=== PATIENT | female | born 1985 | race Caucasian/White ===

== ENCOUNTER 2020-08-17 09:56 | Outpatient (REF) | payer SELFPAY ==
--- NOTE | 2020-08-17 11:30 | PAPFT_PTH ---
PATIENT: Bailey Lloyd LOC: [facility] U#:[id number] AGE/SX: 34/F ROOM: RE08/17/[address]: Ananya Thomason APRN : 1985 BED: DIS: 08/17/2020 SPEC #: [id number] RECD: 08/18/20 10:19 STATUS: SERENA REDebra #: [id number] PRECIOUS: 08/17/20 11:[address]: Ananya Thomason DEPT: [facility] Cytology RECD BY: Aliza Martinez Tissues: 1 - CX/ENDOCX FOR PAP SMEARS Procedures: PAP THIN PREP/[facility] Screening HPV DNA PROBE Comments: [id number]
== END 2020-08-17 09:57 | disposition home or self-care (01) ==
LOC: LBN 09:56
PROVIDERS: PCP Nurse Practitioner Adult Health; Visit Provider Nurse Practitioner Adult Health
DX: Z12.4 Encounter for screening for malignant neoplasm of cervix (principal); Z11.51 Encounter for screening for human papillomavirus (HPV)
CPT/HCPCS: 88142; 87624

== ENCOUNTER 2020-08-17 16:24 | Outpatient (REF) | payer SELFPAY ==
[2020-08-19 15:25] LABS: Chlamydia Result Negative (Negative); GC Result Negative (Negative)
== END 2020-08-17 16:25 | disposition home or self-care (01) ==
LOC: LBO 16:24
PROVIDERS: PCP Nurse Practitioner Adult Health; Visit Provider Nurse Practitioner Adult Health
DX: N89.8 Other specified noninflammatory disorders of vagina (principal); Z11.3 Encounter for screening for infections with a predominantly sexual mode of transmission
CPT/HCPCS: 87491; 87591; 87480; 87510; 87660